=== PATIENT | male | born 1990 | race Caucasian/White ===

== ENCOUNTER 2024-07-22 22:26 | Emergency (ER) | payer OTHER ==
[~2024-07-22] VITALS: Ht 182.9 cm; Wt 99.8 kg
[2024-07-22] MEDS ORDERED: MORPHINE SULFATE 4 MG/ML VIAL IV ONE (22:30)
[2024-07-22] MEDS ORDERED: DIPHTH,PERTUSS(ACELL),TET VAC 0.5 ML SYRINGE IM ONE (22:30)
[2024-07-22 22:41] LABS: BASOPHILS 0.7 % (0-2); EOSINOPHILS 2.9 % (0-6); HEMATOCRIT 44.2 % (35.0-50.0); HEMOGLOBIN 14.8 g/dL (12.0-18.0); LYMPHOCYTES 39.3 % (24-44); MCH 31.2 (27-36); MCHC 33.5 g/dl (30-36); MCV 93.2 fl (81-99); MONOCYTES 10.5 % (0-12); NEUTROPHILS 46.6 % (39-80); PLATELET COUNT 287 K/uL (140-440); RBC 4.74 M/ul (4.3-5.7); RDW 13.2 (10.5-15.0)
[2024-07-22 22:58] LABS: ALBUMIN 3.5 g/dL (3.4-5.0); ALBUMIN/GLOBULIN RATIO 1.03 (1.1-2.4); ALCOHOL, MEDICAL <3 ng/dL (<3); ALKALINE PHOSPHATASE 110 U/L (46-116); ALT (SGPT) 29 U/L (14-59); ANION GAP 10.9 (7-21); AST (SGOT) 16 U/L (15-37); BILIRUBIN, TOTAL 0.2 ng/dL (0.2-1.0); BUN/CREATININE RATIO 18.48 (6.0-28.6); CALCIUM 9.6 mg/dL (8.5-10.1); CARBON DIOXIDE 26 mmol/L (21-32); CHLORIDE 112 mmol/L (98-107); CREATININE, SERUM 1.19 mg/dL (0.70-1.30); GLOMERULAR FILTRATION RATE,EST 81 mL/min (>60); POTASSIUM 3.9 mmol/L (3.5-5.1); PROTEIN, TOTAL 6.9 g/dL (6.4-8.2); UREA NITROGEN 22 mg/dL (7-18)
[2024-07-22] MEDS ORDERED: ACETAMINOPHEN 500 MG TAB PO ONE (23:45)
[2024-07-23 00:17] VITALS: BP 122/76
== END 2024-07-23 00:18 | disposition home or self-care (01) ==
LOC: ED 22:26
PROVIDERS: Family Medicine
DX: S16.1XXA Strain of muscle, fascia and tendon at neck level, initial encounter (principal); S39.012A Strain of muscle, fascia and tendon of lower back, initial encounter; S09.90XA Unspecified injury of head, initial encounter; W01.0XXA Fall on same level from slipping, tripping and stumbling without subsequent striking against object, initial encounter; Y93.67 Activity, basketball; Y92.147 Courtyard of prison as the place of occurrence of the external cause
CPT/HCPCS: 36415; 70450; 72125; 72131; 80053; 85025; 90471; 90715; 96374; 99284-25; A9270; G0480; J2270